=== PATIENT | male | born 1945 | race Caucasian/White ===

== ENCOUNTER → 2019-09-02 | Outpatient (CLI) | payer MEDICARE ==
[~2019-09-02] MED LIST: ALBU90OI INH; ASPI325EC PO; AZIT250 PO; Allopurinol100 MG; HYDACE5 PO; LOSA25; OLME40 PO; WARF5 PO; WARF6
== END | disposition home or self-care (01) ==
LOC: LAB EV 12:08 → LAB SHORT 12:08
DX: M31.6 Other giant cell arteritis (principal)
CPT/HCPCS: 85651

== ENCOUNTER → 2020-09-08 | Outpatient (CLI) | payer MEDICARE | LOC: PLD 10:33 → LAB SHORT 10:33 | DX: D48.5 Neoplasm of uncertain behavior of skin (principal) | CPT/HCPCS: 88305 ==